=== PATIENT | male | born 1985 | race Caucasian/White ===

== ENCOUNTER 2019-11-21 07:33 | Emergency (ER) | payer MEDICAID, SELFPAY ==
[~2019-11-21] VITALS: Ht 185.4 cm; Wt 113.4 kg
[2019-11-21 07:33] VITALS: BP_SYST 147
--- NOTE | 2019-11-21 07:59 | NUR ---
Patient to ER bed 4 to gown for evaluation. Side rails up. Report given to ANTHONY Sotomayor.
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
--- NOTE | 2019-11-21 08:03 | NUR ---
ER Dr. King at bedside examining patient.
[2019-11-21] MEDS ORDERED: KETOROLAC TROMETHAMINE 30 MG VIAL IVP ONE (08:15)
[2019-11-21] MEDS ORDERED: DIPHENOXYLATE HCL/ATROP SULF 2.5 MG TAB PO ONE (08:15)
[2019-11-21] MEDS ORDERED: ONDANSETRON HCL 4 MG/2 ML VIAL IVP ONE (08:15)
[2019-11-21] MEDS ORDERED: NACL 0.9% 1,000 ML IV ONE (08:15)
--- NOTE | 2019-11-21 08:15 | NUR ---
Urine specimen collected as ordered by Dr. King.
--- NOTE | 2019-11-21 08:30 | NUR ---
# 18 gauge angiocath placed to LAC. Use of asceptic technique. Opsite placed over site. Blood return noted. Blood for lab drawn from site. Flushed with 10 cc of normal saline. No evidence of infiltration noted. Patient tolerated well.
[2019-11-21 08:31] LABS: BASOPHILS % (AUTO) 0.2 % (0.0-2.0); EOSINOPHILS # (AUTO) 0.1 K/uL (0.0-0.4); EOSINOPHILS % (AUTO) 0.5 % (0.0-4.0); HEMATOCRIT 49.6 % (36-54); HEMOGLOBIN 16.5 g/dL (14.0-18.0); LYMPHOCYTES # (AUTO) 0.3 K/uL (1.0-5.5); LYMPHOCYTES % (AUTO) 2.7 % (20.5-51.5); MEAN CORPUSCULAR HEMOGLOBIN 31 pg (27-31); MEAN CORPUSCULAR HGB CONC 33 % (32-36); MEAN CORPUSCULAR VOLUME 93 fL (79.0-98.0); MONOCYTES # (AUTO) 0.7 K/uL (0.0-1.0); MONOCYTES % (AUTO) 6.1 % (1.7-9.3); NEUTROPHILS # (AUTO) 10.7 K/uL (1.8-7.7); NEUTROPHILS % (AUTO) 90.5 % (40.0-70.0); PLATELET COUNT (AUTO) 203 K/uL (130-430); RED BLOOD CELL COUNT(AUTO) 5.32 MIL/uL (4.2-6.2); RED CELL DISTRIBUTION WIDTH 13.1 % (9.0-15.0); WHITE BLOOD COUNT (AUTO) 11.8 K/uL (4.8-10.8)
--- NOTE | 2019-11-21 08:35 | NUR ---
Administered Toradol, Zofran IVP and Lomotil PO as ordered by Dr. King. Patient tolerated the medications well. See eMAR for details.
[2019-11-21] MEDS ORDERED: LORazepam 2 MG/ML VIAL IVP ONE (08:45)
[2019-11-21 08:50] LABS: ALBUMIN 4.4 g/dL (3.4-4.8); CALCIUM 9.7 mg/dL (8.4-11.0); CREATININE 1.03 mg/dL (0.55-1.30); POTASSIUM 3.8 mmol/L (3.5-5.1); TOTAL BILIRUBIN 0.9 mg/dL (0.0-1.0)
--- NOTE | 2019-11-21 09:54 | NUR ---
ER discussed with the patient the results and treatment provided. Patient given written and verbal discharge instructions and verbalized understanding. Opportunity for questions provided and answered. Patient in stable condition, last set of vital signs within normal limits, pain scale 0/10, speaking in full sentences and ambulated with a steady gait upon discharge. ID arm band removed. Rx of Lomotil and Zofran given. Patient educated on pain management and to follow up with PMD. Medication side effect fact sheet provided.
[2019-11-21 09:55] VITALS: BP_SYST 147
== END 2019-11-21 09:54 | disposition home or self-care (01) ==
LOC: SED 07:33
DX: K52.9 Noninfective gastroenteritis and colitis, unspecified (principal); I10 Essential (primary) hypertension; R11.2 Nausea with vomiting, unspecified
CPT/HCPCS: 36415; 80053; 85025; 96361; 96374; 96375; 99284; J1885; J2405; J7030

== ENCOUNTER 2019-12-15 19:37 | Emergency (ER) | payer MEDICAID, SELFPAY ==
[~2019-12-15] VITALS: Ht 182.9 cm; Wt 113.4 kg
[2019-12-15 20:00] VITALS: BP_SYST 165
--- NOTE | 2019-12-15 20:00 | NUR ---
Patient to ER bed 2 to gown for evaluation. Side rails up. Report given to RUTH.
--- NOTE | 2019-12-15 20:20 | NUR ---
Dr. Guerrero bedside for pt eval
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
--- NOTE | 2019-12-15 20:40 | NUR ---
Pt taken to Radiology in stable condition
--- NOTE | 2019-12-15 20:52 | NUR ---
Pt back from Radiology, well tolerated
[2019-12-15 20:58] LABS: BASOPHILS % (AUTO) 0.4 % (0.0-2.0); EOSINOPHILS # (AUTO) 0.3 K/uL (0.0-0.4); EOSINOPHILS % (AUTO) 5.5 % (0.0-4.0); HEMATOCRIT 49.8 % (36-54); LYMPHOCYTES # (AUTO) 1.8 K/uL (1.0-5.5); LYMPHOCYTES % (AUTO) 30.8 % (20.5-51.5); MEAN CORPUSCULAR HEMOGLOBIN 32 pg (27-31); MEAN CORPUSCULAR HGB CONC 34 % (32-36); MEAN CORPUSCULAR VOLUME 92 fL (79.0-98.0); MONOCYTES # (AUTO) 0.4 K/uL (0.0-1.0); MONOCYTES % (AUTO) 6.8 % (1.7-9.3); NEUTROPHILS # (AUTO) 3.3 K/uL (1.8-7.7); NEUTROPHILS % (AUTO) 56.5 % (40.0-70.0); PLATELET COUNT (AUTO) 237 K/uL (130-430); RED BLOOD CELL COUNT(AUTO) 5.41 MIL/uL (4.2-6.2); RED CELL DISTRIBUTION WIDTH 12.5 % (9.0-15.0); WHITE BLOOD COUNT (AUTO) 5.8 K/uL (4.8-10.8)
[2019-12-15 21:23] LABS: CALCIUM 9.6 mg/dL (8.4-11.0); CREATININE 1.14 mg/dL (0.55-1.30); POTASSIUM 3.6 mmol/L (3.5-5.1); TOTAL BILIRUBIN 0.4 mg/dL (0.0-1.0)
[2019-12-15 21:24] LABS: ALBUMIN 4.5 g/dL (3.4-4.8)
[2019-12-15 21:25] LABS: URIC ACID 5.6 mg/dL (2.4-7.0)
--- NOTE | 2019-12-15 21:48 | NUR ---
Dr. Guerrero bedside for pt update
[2019-12-15 22:00] VITALS: BP_SYST 148
--- NOTE | 2019-12-15 22:00 | NUR ---
Patient given written and verbal discharge instructions and verbalizes understanding. ER MD discussed with patient the results and treatment provided. Patient in stable condition. ID arm band removed. IV catheter removed intact and dressing applied, no active bleeding. Patient educated on pain management and to follow up with PMD. Pain Scale 0/10 Opportunity for questions provided and answered.
== END 2019-12-15 22:00 | disposition home or self-care (01) ==
LOC: SED 19:37
DX: S70.12XA Contusion of left thigh, initial encounter (principal); I10 Essential (primary) hypertension; V29.9XXA Motorcycle rider (driver) (passenger) injured in unspecified traffic accident, initial encounter; Y93.89 Activity, other specified; Y92.89 Other specified places as the place of occurrence of the external cause; Y99.8 Other external cause status
CPT/HCPCS: 36415; 73700-TC; 80053; 84550-TC; 85025; 99284